=== PATIENT | male | born 1980 | race African-American/Black ===

== ENCOUNTER 2021-04-08 12:09 | Inpatient (IN) | payer OTHER, SELFPAY ==
[2021-04-08] VITALS (8 sets, daily range): BP systolic 101–153; BP diastolic 51–79; PULSE 88–114; RESP 16–18; TEMP 36.8–37.9; O2SAT 98–100; BMI 18.3
--- NOTE | 2021-04-08 12:21 | CT_ITS ---
PROCEDURE INFORMATION: Exam: CT Abdomen And Pelvis Without Contrast Exam date and time: 04/08/2021 12:21 PM Age: 40 years old Clinical indication: Nausea and vomiting; Patient HX: Patient complains of nausea vomitting diarrhea -- no contrast; Additional info: Pain, swelling TECHNIQUE: Imaging protocol: Computed tomography of the abdomen and pelvis without contrast. Radiation optimization: All CT scans at this facility use at least one of these dose optimization techniques: automated exposure control; mA and/or kV adjustment per patient size (includes targeted exams where dose is matched to clinical indication); or iterative reconstruction. COMPARISON: SD XR CHEST PORTABLE 04/08/2021 12:34 PM FINDINGS: Lungs: moderate right pleural effusion with right basilar consolidation versus atelectasis. 16 mm lesion within the lateral segment of the left lobe. Follow-up recommended. Heterogeneous liver. Liver: Nodular cirrhotic appearing liver. Splenomegaly. Small amount of ascites/perihepatic fluid. Gallbladder and bile ducts: Probable gallstones. Thickened edematous gallbladder wall. Nonspecific finding in a patient with portal hypertension. Pancreas: Normal. No ductal dilation. Spleen: See Liver finding. Adrenal glands: Normal. No mass. Kidneys and ureters: No renal calcifications, hydronephrosis, or hydroureter. Stomach and bowel: Fluid-filled large bowel diffusely. Appendix: Appendix normal. Intraperitoneal space: See Liver finding. Vasculature: See Gallbladder and bile ducts finding. Lymph nodes: Unremarkable. No enlarged lymph nodes. Urinary bladder: Unremarkable as visualized. Reproductive: Unremarkable as visualized. Bones/joints: Unremarkable. No acute fracture. Soft tissues: Unremarkable. IMPRESSION: 1. Nodular cirrhotic appearing liver. Splenomegaly. Small amount of ascites/perihepatic fluid. 2. Fluid-filled large bowel diffusely. Fluid-filled small bowel. Favor ileus. Follow-up if indicated. 3. Appendix normal. 4. Moderate right pleural effusion with right basilar consolidation versus atelectasis. 5. Probable gallstones. Thickened edematous gallbladder wall. Nonspecific finding in a patient with portal hypertension. 6. No renal calcifications, hydronephrosis, or hydroureter.
--- NOTE | 2021-04-08 12:21 | XR_ITS ---
PROCEDURE INFORMATION: Exam: XR Chest Exam date and time: 04/08/2021 12:21 PM Age: 40 years old Clinical indication: Cough TECHNIQUE: Imaging protocol: XR of the chest. Views: 1 view. COMPARISON: No relevant prior studies available. FINDINGS: Lungs: Patchy airspace disease in the right mid lung and right lower lobe. Subpulmonic effusion. Pleural spaces: See Lungs finding. Heart/Mediastinum: Unremarkable. No cardiomegaly. Bones/joints: Unremarkable. IMPRESSION: Patchy airspace disease in the right mid lung and right lower lobe. Subpulmonic effusion. Lungs are otherwise well aerated.
[2021-04-08 12:40] LABS: Coronavirus 19, PCR Not Detected (NotDetected); Influenza A, PCR Not Detected (NotDetected); Influenza B, PCR Not Detected (NotDetected)
[2021-04-08 12:47] LABS: Basophils % 0.3 % (0.1-2.0); Lymphocytes # 1.7 K/mm3 (0.7-4.5); Monocytes # 0.6 K/mm3 (0.1-1.0); Platelet Count 97 K/mm3 (142-424)
[2021-04-08 12:50] LABS: Eosinophils % 0.2 % (0.1-12.0); Hematocrit 26.9 % (42.0-52.0); Hemoglobin 8.9 g/dL (14.1-18.0); Lymphocytes % 9.9 % (10-50); Mean Corpuscular HGB Conc 33.1 g/dL (31.8-35.4); Mean Corpuscular Hemoglobin 39.3 pg (27.0-31.2); Mean Corpuscular Volume 118.6 fl (80-94); Mean Platelet Volume 8.4 fl (7.4-10.4); Monocytes % 3.6 % (1.7-9.3); Neutrophils # 14.7 K/mm3 (1.8-7.8); Red Blood Count 2.27 M/mm3 (4.60-6.20); White Blood Count 17.1 K/mm3 (4.8-10.8)
[2021-04-08 12:52] LABS: MANUAL DIFFERENTIAL MANUAL DIFFERENTIAL (MANUAL DIFF)
[2021-04-08 12:55] LABS: Chloride 98 mmol/L (98-107)
[2021-04-08 12:56] LABS: Potassium 3.9 mmoL/L (3.5-5.1); Sodium 129 mmol/L (136-145)
[2021-04-08 12:58] LABS: Ammonia 42 umol/L (9-30); Lactic Acid 1.9 mmol/L (0.7-2.1)
[2021-04-08 12:59] LABS: Alanine Aminotransferase 34 U/L (12-78); Albumin Level 3.1 g/dl (3.5-5.0); Albumin/Globulin Ratio 0.6 (1.1-1.8); Alkaline Phosphatase 165 U/L (38-126); Anion Gap 11.9 mEq/L (5-15); Aspartate Amino Transferase 110 U/L (17-59); Bilirubin,Total 20.8 mg/dl (0.2-1.3); Blood Urea Nitrogen 11 mg/dl (9-20); Calcium 8.2 mg/dl (8.4-10.2); Carbon Dioxide 23 mmol/L (22.0-30.0); Creatinine Clearance Estimated 115 mL/min (50-200); Estimated Glomerular Filt Rate 108 ml/min (>60); GFR (African American) 131 ML/MIN (>60); Globulin 4.9 g/dL (1.3-3.2); Glucose 141 mg/dl (74-100); Lipase 53 U/L (23-300)
[2021-04-08 13:00] LABS: Activated Partial Thrombo Time 40.4 seconds (22.8-30.6); Prothrombin Time 20.6 seconds (10.1-12.5)
[2021-04-08 13:02] LABS: Ethyl Alcohol < 10 mg/dl (0-10)
[2021-04-08 13:03] LABS: INR 1.83 (0.9-1.1)
[2021-04-08 13:06] LABS: Acanthocytes 1+; Anisocytosis 2+; Lymphocytes % 10 % (10-50); Macrocytosis 2+; Monocytes % 3 % (2-9); Neutrophils % 87 % (42-76); Platelet Estimate Moderate Decrease; Poikilocytosis 1+; Total Cells Counted 100
[2021-04-08 13:07] LABS: NT Pro Brain Natriuretic Pep. 743 pg/mL (0-125)
--- NOTE | 2021-04-08 13:11 | HMH.EDGENADL ---
ED Disposition Clinical Impression: Hyperbilirubinemia, Alcohol abuse, Cholecystitis Cirrhosis Qualifiers: Hepatic cirrhosis type: alcoholic cirrhosis Ascites presence: with ascites Qualified Code(s): K70.31 - Alcoholic cirrhosis of liver with ascites Sepsis Qualifiers: Sepsis type: sepsis due to unspecified organism Sepsis acute organ dysfunction status: with acute organ dysfunction Severe sepsis acute organ dysfunction type: unspecified Severe sepsis shock status: without septic shock Qualified Code(s): A41.9 - Sepsis, unspecified organism; R65.20 - Severe sepsis without septic shock Disposition: Admitted As Inpatient Condition on Discharge: Serious Referrals: Provider,Referral, [Primary Care Provider] - - Critical Care Critical Care Time: No Attestation: On 04/08/21, the high probability of a clinically significant, sudden or life threatening deterioration of the following system(s) required my full and direct attention, intervention and personal management. The time I documented below is in addition to time spent performing reported procedures but includes the following listed in this critical care notation. Medical Decision Making - Medical Records Medical records reviewed: Yes: I reviewed the patient's medical records. - Madi Inquiry Pt receiving controlled substance: No Vital Signs: 04/08/21 12:10 04/08/21 13:00 Temperature 100.2 F H Temperature Source Oral Pulse Rate 107 H Pulse Rate [Left Radial] 114 H Respiratory Rate 18 18 Blood Pressure 121/64 Blood Pressure [Right Arm] 153/79 H Blood Pressure Mean 83 Blood Pressure Mean [Right Arm] 103 Blood Pressure Source [Right Arm] Automatic Cuff Blood Pressure Position [Right Arm] Sitting 02 Sat by Pulse Oximetry 99 99 Oxygen Delivery Method Room Air - Lab Data Lab Results 04/08/21 12:30: WBC 17.1 H, RBC 2.27 L, Hgb 8.9 L, Hct 26.9 L, MCV 118.6 H, MCH 39.3 H, MCHC 33.1, RDW 16.0, Plt Count 97 L, MPV 8.4, Neut % (Auto) 86.0 H, Lymph % (Auto) 9.9 L, [place] % (Auto) 3.6, Eos % (Auto) 0.2, Baso % (Auto) 0.3, Neut # (Auto) 14.7 H, Lymph # (Auto) 1.7, [place] # (Auto) 0.6, Eos # (Auto) 0.0, Baso # (Auto) 0.0, Total Counted 100, Neutrophils % (Manual) 87 H, Lymphocytes % (Manual) 10, Monocytes % (Manual) 3, Platelet Estimate Moderate decrease, Poikilocytosis 1+, Anisocytosis 2+, Macrocytosis 2+, Acanthocytes (Spur) 1+ 04/08/21 12:30: Sodium 129 L, Potassium 3.9, Chloride 98, Carbon Dioxide 23, Anion Gap 11.9, BUN 11, Creatinine 0.80, Estimated Creat Clear 115, Estimated GFR 108, Est GFR ( Amer) 131, Glucose 141 H, Calcium 8.2 L, Total Bilirubin 20.8 H*, AST 110 H, ALT 34, Alkaline Phosphatase 165 H, Troponin I 0.01, Total Protein 8.0, Albumin 3.1 L, Globulin 4.9 H, Albumin/Globulin Ratio 0.6 L, Lipase 53 04/08/21 12:30: Plasma/Serum Alcohol < 10 04/08/21 12:30: PT 20.6 H, INR 1.83 H, APTT 40.4 H 04/08/21 12:30: Lactate 1.9 04/08/21 12:30: Ammonia 42 H 04/08/21 12:30: NT-Pro-B Natriuret Pep 743 H 04/08/21 12:30: SARS-CoV-2 (PCR) Not detected, Influenza A Untype (PCR) Not detected, Influenza Type B (PCR) Not detected 04/08/21 13:26: Urine Color Silva, Urine Appearance Clear, Urine pH 5.0, Ur Specific Pierson 1.025, Urine Protein 1+, Urine Glucose (UA) Trace, Urine Ketones Trace, Urine Blood Negative, Urine Nitrate Positive, Urine Bilirubin 3+ A, Urine Urobilinogen 2.0, Ur Leukocyte Esterase Trace, Urine RBC Occasional, Urine WBC Occasional, Ur Squamous Epith Cells Occasional, Ur Transition Epith Cell 5-10, Amorphous Sediment 1+, Urine Bacteria 2+ 04/08/21 13:26: Urine Opiates Screen Negative, Urine Methadone Screen Negative, Ur Barbituates Screen Negative, Ur Phencyclidine Scrn Negative, Ur Amphetamines Screen Negative, U Benzodiazepines Scrn Positive H, Urine Cocaine Screen Negative, U Marijuana (THC) Screen Positive H Result diagrams: 04/08/21 12:30 04/08/21 12:30 Orders (Tests/Meds): ED MEDICATIONS Generic Name Dose Route Start Last Admin
[2021-04-08 13:15] LABS: Troponin I 0.01 ng/ml (0.00-0.034)
[2021-04-08 13:37] LABS: Microscopic, Urine URINE MICROSCOPIC (MICROSCOPIC)
[2021-04-08 13:39] LABS: Appearance,Urine CLEAR (Clear); Blood, Urine Negative (Negative); Glucose,Urine (UA) TRACE (Negative); Ketones,Urine TRACE (Negative); Leukocyte Esterase,Urine TRACE (Negative); Nitrate,Urine POSITIVE (Negative); Protein,Urine 1+ (Negative); Specific Gravity, Urine 1.025 (1.005-1.030)
[2021-04-08 13:42] LABS: Color,Urine Amber (Yellow)
[2021-04-08 13:45] LABS: Bilirubin,Urine 3+ (Negative)
[2021-04-08 13:52] LABS: Barbiturates Screen,Urine Negative ng/ml (<200); Benzodiazepines Screen,Urine Positive ng/ml (<200)
[2021-04-08 13:53] LABS: Amphetamine/Metha Screen,Urine Negative ng/ml (<1000)
[2021-04-08 13:54] LABS: Cannabinoid Screen,Urine Positive ng/ml (<50); Cocaine Screen,Urine Negative ng/ml (<300)
[2021-04-08 13:55] LABS: Methadone Screen,Urine Negative ng/ml (<300)
[2021-04-08 13:56] LABS: Opiate Screen,Urine Negative ng/ml (<300); Phencyclidine Screen,Urine Negative ng/ml (<25)
[2021-04-08 13:57] LABS: RBC,Urine Occasional #/hpf (0-3); WBC,Urine Occasional #/hpf (0-3)
[2021-04-08 13:58] LABS: Amorphous Sediment,Urine 1+ /lpf; Bacteria,Urine 2+ /lpf; Squamous Epithelial Cell,Urine Occasional #/hpf (0-5)
--- NOTE | 2021-04-08 13:58 | PC.NURSE ---
called for transfer, no acceptance. [facility] called for trnsfer, no availability, [facility] called, they are at cap for transfers only ob, stroke or trauma.
--- NOTE | 2021-04-08 14:04 | PC.NURSE ---
[facility] called, pt wait list is about 2 days .
--- NOTE | 2021-04-08 14:29 | PC.NURSE ---
report called to [facility]
[2021-04-08 16:15] LABS: Troponin I 0.01 ng/ml (0.00-0.034)
--- NOTE | 2021-04-08 16:52 | PC.NURSE ---
Spoke with who made changes to patients medications. Ordered a rally pack mixed with LR and a multivitamin. Also requested a 2nd IV be placed prophylactically. Orders followed. Paged pharmacist Anmol as rallypack is not stocked in [facility] in [facility], advised to go to er to get a rally pack, advised on how to properly mix the medication.
[2021-04-08 19:12] LABS: Troponin I 0.02 ng/ml (0.00-0.034)
--- NOTE | 2021-04-08 19:36 | PC.NURSE ---
Patient is resting in bed. Neurologically alert and oriented. Respiratory room air, no issues. GI - no n/v but states that he has chronic diarrhea and is wearing a depend. Patient has eaten 100% of meals. patient voids in toilet or urinal. Ambulates in room independently .Encouraged to call for assistance. Patient has jaundice on his entire body. States that he has been like that for a couple of years. Patient expressed wishes to speak with hospice while admitted. Also requested to make his significant other his poa. States they have paperwork for a livingwill and advanced directive already printed, encouraged patient to have significant other bring that tomorrow. Patient has been resting comfortably. See earlier note about correspondence with .
[2021-04-09 04:00] VITALS: BP 123/68; PULSE 97; RESP 16; TEMP 37.2; O2SAT 100
[2021-04-09 05:42] VITALS: BMI 19.5
[2021-04-09 06:34] LABS: Basophils % 0.3 % (0.1-2.0); Lymphocytes # 1.5 K/mm3 (0.7-4.5); Monocytes # 0.5 K/mm3 (0.1-1.0)
[2021-04-09 06:40] LABS: Eosinophils # 0.2 K/mm3 (0.0-0.4); Eosinophils % 1.7 % (0.1-12.0); Lymphocytes % 11.7 % (10-50); Mean Corpuscular HGB Conc 32.9 g/dL (31.8-35.4); Mean Corpuscular Hemoglobin 39.1 pg (27.0-31.2); Mean Corpuscular Volume 118.7 fl (80-94); Mean Platelet Volume 9.3 fl (7.4-10.4); Monocytes % 3.6 % (1.7-9.3); Neutrophils # 10.9 K/mm3 (1.8-7.8); Neutrophils % 82.9 % (37.0-80.0); Platelet Count 72 K/mm3 (142-424); Red Blood Count 2.06 M/mm3 (4.60-6.20); White Blood Count 13.1 K/mm3 (4.8-10.8)
[2021-04-09 06:42] LABS: Hematocrit 24.4 % (42.0-52.0)
--- NOTE | 2021-04-09 06:46 | PC.NURSE ---
Patient has had an uneventful night this shift; No diarrhea episodes reported this shift. No s/s of acute distress noted, call light within reach, bed at lowest level for safety; will continue to monitor.
[2021-04-09 06:57] LABS: Alanine Aminotransferase 29 U/L (12-78); Albumin Level 2.8 g/dl (3.5-5.0); Albumin/Globulin Ratio 0.6 (1.1-1.8); Alkaline Phosphatase 169 U/L (38-126); Anion Gap 9.4 mEq/L (5-15); Aspartate Amino Transferase 94 U/L (17-59); Bilirubin,Total 16.2 mg/dl (0.2-1.3); Blood Urea Nitrogen 15 mg/dl (9-20); Calcium 7.6 mg/dl (8.4-10.2); Carbon Dioxide 23 mmol/L (22.0-30.0); Chloride 102 mmol/L (98-107); Creatinine Clearance Estimated 122 mL/min (50-200); Estimated Glomerular Filt Rate 108 ml/min (>60); GFR (African American) 131 ML/MIN (>60); Globulin 4.6 g/dL (1.3-3.2); Glucose 121 mg/dl (74-100); Potassium 3.4 mmoL/L (3.5-5.1); Sodium 131 mmol/L (136-145); Total Protein,Serum 7.4 g/dl (6.3-8.2)
--- NOTE | 2021-04-09 07:20 | P.CONPHA_ITS ---
[facility] Pharmacy VTE Monitoring - Patient Demographics Admission date: 04/08/21 Report Date: 04/09/21 Time: 07:20 Allergies/Adverse Reactions: Patient Allergies No Known Allergies Allergy (Verified 04/08/21 12:37) Height: 1.88 m Weight: 68.946 kg Patient Problems: Current Active Problems Cirrhosis (Acute) Sepsis (Acute) Hyperbilirubinemia (Acute) Alcohol abuse (Acute) Cholecystitis (Acute) - VTE Risk Labs: VTE Related Lab Results Hgb 8.0 g/dL (14.1-18.0) L D 04/09/21 05:58 Hct 24.4 % (42.0-52.0) L 04/09/21 05:58 Plt Count 72 K/mm3 (142-424) L D 04/09/21 05:58 PT 20.6 seconds (10.1-12.5) H 04/08/21 12:30 INR 1.83 (0.9-1.1) H 04/08/21 12:30 APTT 40.4 seconds (22.8-30.6) H 04/08/21 12:30 BUN 15 mg/dl (9-20) D 04/09/21 05:58 Creatinine 0.80 mg/dl (0.66-1.25) 04/09/21 05:58 Estimated Creat Clear 122 mL/min (50-200) 04/09/21 05:58 Was VTE Risk Assessment Performed: Yes VTE Score: 2 VTE Risk Level: Very Low Risk - Prophylaxis VTE Prophylaxis Ordered?: Yes Types of VTE Prophylaxis: TEDS Knee High Location of Applied Device: Bilateral Lower Extremeties
--- NOTE | 2021-04-09 07:29 | HMH.PHAINT ---
MEDICATION RECONCILIATION COMPLETED ON PATIENT USING EXTERNAL FILL HISTORY FROM PHARMACY. -GRACE CARREON, YAIMAD
[2021-04-09 08:00] VITALS: BP 124/70; PULSE 105; RESP 20; TEMP 37.3; O2SAT 99
--- NOTE | 2021-04-09 08:53 | HMH.HP ---
*Admission Date: 04/08/21 *Chief complaint: Liver cirrhosis exacerbation, fever, end-stage liver disease *History of present illness: 40-year-old white male, extremely unfortunate history of long-term alcoholism and end-stage cirrhosis. He lives in [facility], and follows with Dr. Solano, tandem mill sticker at the [facility] in [place], and has known about his severe liver disease for several years. He has been offered option of transplant, but understands that he would have to be abstinent from alcohol and nicotine for at least 6 months and is extremely pessimistic about his ability to do this and is also very pessimistic about the chances of liver transplant being procured and then succeeded in his case. He came to the emergency department here because of low-grade fevers, abdominal pain and just generalized malaise. Was found to have elevated leukocytosis, significant elevation of LFTs, bilirubin and coags with a very high meld score and overall significant poor prognostic indicators. Admitted to hospital for IV ceftriaxone given possible spontaneous bacterial peritonitis. This morning he states he feels a little better, less abdominal pain but he and his fianc?e-who is his documented healthcare surrogate-have lots of questions about being admitted to hospice services. [facility] History I have reviewed the patient's past medical history: Yes Medical History: Reports:: Gastroesophageal Reflux Disease(GERD) *Have you ever received a pneumonia vaccine?: No *Have you received a flu vaccine this season?: No Other Medical History: Reports: Blood Transfusion Reaction, Other (Chronic low back pain, on chronic opiates previously) Comment:: End-stage liver to cirrhosis as detailed in HPI. Chronic/long-term alcoholism Other Surgeries: Yes: Appendectomy - *Social History Last grade of school completed: GED Smoking Status: Current every day smoker Tobacco Type: cigarettes # Packs/Day (cigarettes): 1 Alcohol Intake: current Alcohol Intake Frequency:: other Substance Use Type: marijuana Last Used Substance: days (ago) *Occupational Status:: unemployed Housing: house Household Members: significant other *Travel in the last 8 weeks: None Family Hx:: Hypertension, Substance abuse, Alcoholism, Mental illness Review of Systems - *Neurologic Reports weakness Meds Home Medications Medication Instructions Recorded Confirmed Type Famotidine [Acid Controller] 20 mg PO BID 04/08/21 04/09/21 History Lactulose 30 ml PO TID 04/08/21 04/09/21 History Propranolol HCl 10 mg PO BID 04/08/21 04/09/21 History Spironolactone [Spironolactone 25 mg PO DAILY 04/08/21 04/08/21 History 25mg Tablet] Folic Acid 1 mg PO DAILY 04/09/21 04/09/21 History Allergies Allergy/AdvReac Type Severity Reaction Status Date / Time No Known Allergies Allergy Verified 04/08/21 12:37 Exam Vital signs and Labs for Last 24 Hours: Temp Pulse Resp BP Pulse Ox 99 F 97 H 16 123/68 100 04/09/21 04:00 04/09/21 04:00 04/09/21 04:00 04/09/21 04:00 04/09/21 04:00 Laboratory Results - last 24 hr 04/08/21 12:30: WBC 17.1 H, RBC 2.27 L, Hgb 8.9 L, Hct 26.9 L, MCV 118.6 H, MCH 39.3 H, MCHC 33.1, RDW 16.0, Plt Count 97 L, MPV 8.4, Neut % (Auto) 86.0 H, Lymph % (Auto) 9.9 L, [place] % (Auto) 3.6, Eos % (Auto) 0.2, Baso % (Auto) 0.3, Neut # (Auto) 14.7 H, Lymph # (Auto) 1.7, [place] # (Auto) 0.6, Eos # (Auto) 0.0, Baso # (Auto) 0.0, Total Counted 100, Neutrophils % (Manual) 87 H, Lymphocytes % (Manual) 10, Monocytes % (Manual) 3, Platelet Estimate Moderate decrease, Poikilocytosis 1+, Anisocytosis 2+, Macrocytosis 2+, Acanthocytes (Spur) 1+ 04/08/21 12:30: Sodium 129 L, Potassium 3.9, Chloride 98, Carbon Dioxide 23, Anion Gap 11.9, BUN 11, Creatinine 0.80, Estimated Creat Clear 115, Estimated GFR 108, Est GFR ( Amer) 131, Glucose 141 H, Calcium 8.2 L, Total Bilirubin 20.8 H*, AST 110 H, ALT 34, Alkaline Phosphatase 165 H, Troponin I 0.01, Total Protein 8.0,
--- NOTE | 2021-04-09 09:19 | SW/DCPLANNER ---
Addendum entered by Nicol Brito 04/09/21 12:49: HOSPICE [facility] DID COME AND EVALUATE PATIENT AND HE IS APPROPRIATE FOR HOSPICE SERVICES... DISCHARGE TMRW... Original Note: RECEIVED REFERRAL FOR THIS PATIENT FOR HOSPICE CONSULT...PATIENT IS END STAGE LIVER DISEASE R/T TO HIS EXCESSIVE ETOH ABUSE.. HE RESIDES IN [facility] AND REQUESTED HOSPICE TO SEE HIM.. I HAVE SENT THE REFERRAL AND WAITING ON SOMEONE TO COME AND EVALUATE HIM FOR THEIR SERVICES...DR SANCHEZ STATED ONCE HOSPICE IS SET UP HE CAN DISCHARGE HOME IN THE AM....
[2021-04-09 09:45] VITALS: BMI 19.5
--- NOTE | 2021-04-09 10:07 | DIET.NUTRFU ---
Nutritional assessment, IP/consult completed. Pt with severe malnutrition rt Cirrhosis. Diet edu provided for malnutrition rt/with cirrhosis. Pt will have hospice consult dt [facility], diet edu/counseling provided with concern for pt wishes and ethical considerations. Pt encouraged to focus on low sodium/adequate protein diet for quality of life and symptom reduction as well as restoring nutritional stores/muscle mass. Pt and encouraged to reach out with questions/concerns at any time.
--- NOTE | 2021-04-09 15:41 | PC.NURSE ---
PT IS RESTING IN BED. MEDICATED PER MAR FOR PAIN. PT HAS DECIDED HE WANTED TO GO HOME WITH HOSPICE. PT HAS BEEN AMBULATING TO THE BATHROOM. LUNG SOUNDS CLEAR. ABDOMEN SOFT/TENDER WITH HYPERACTIVE BOWEL SOUNDS. SKIN C/D/I (JAUNDICE) EATING AND DRINKING WELL. VSS. WILL CONTINUE TO MONITOR.
[2021-04-09 16:00] VITALS: BP 120/57; PULSE 83; RESP 16; TEMP 36.8; O2SAT 100
[2021-04-09 19:52] VITALS: BP 117/62; PULSE 87; RESP 18; TEMP 36.8; O2SAT 97
[2021-04-09 20:00] VITALS: O2SAT 97
[2021-04-10 04:00] VITALS: BP 104/49; PULSE 78; RESP 16; TEMP 36.6; O2SAT 99
--- NOTE | 2021-04-10 04:49 | PC.NURSE ---
Patient is alert and oriented x4. Lung sounds clear. Skin is C/D/I. Patient has rested well this shift with pain being controlled with medication per MAR. VSS, call light within reach, will continue to monitor.
[2021-04-10 05:04] VITALS: BMI 20.5
--- NOTE | 2021-04-10 06:38 | HMH.DCSUM ---
General - General Admission date:: 04/08/21 Discharge date: 04/10/21 HPI HPI: 40-year-old white male, extremely unfortunate history of long-term alcoholism and end-stage cirrhosis. He lives in [facility], and follows with Dr. Solano, senior nuclear medicine technologist at the [facility] in [place], and has known about his severe liver disease for several years. He has been offered option of transplant, but understands that he would have to be abstinent from alcohol and nicotine for at least 6 months and is extremely pessimistic about his ability to do this and is also very pessimistic about the chances of liver transplant being procured and then succeeded in his case. He came to the emergency department here because of low-grade fevers, abdominal pain and just generalized malaise. Was found to have elevated leukocytosis, significant elevation of LFTs, bilirubin and coags with a very high meld score and overall significant poor prognostic indicators. Admitted to hospital for IV ceftriaxone given possible spontaneous bacterial peritonitis. This morning he states he feels a little better, less abdominal pain but he and his fianc?e-who is his documented healthcare surrogate-have lots of questions about being admitted to hospice services. Hospital Course Hospital Course: 40-year-old male with end-stage cirrhosis. Admitted for SBP. Discussion with patient and his fianc?e about goals of care. Patient understands his only curative treatment for his underlying disease is liver transplant. However he continues to drink and is not a candidate at this time. Given his child-Willoughby class C and meld score of 29 on admission, he is at high risk for mortality with any intra-abdominal procedures and has a greater than 20% mortality rate in the next 3 months. Patient and medical surrogate (fianc?) decided to pursue hospice care. Hospice consulted and accepted patient. We will plan to discharge home today with hospice. Continue oral antibiotics, Levaquin, for total of 10 days of antibiotic therapy for SBP. Resume all home medications for end-stage liver disease/cirrhosis and encephalopathy. Pain medication ordered for 3 days to hold him over until hospice takes over his care. Examined on day of discharge. Stable for discharge under hospice care. Objective Vital signs: Temp Pulse Resp BP Pulse Ox 98 F 78 16 104/49 L 99 04/10/21 04:00 04/10/21 04:00 04/10/21 04:00 04/10/21 04:00 04/10/21 04:00 Narrative: - Constitutional NAD, chronically ill appearing; Deeply jaundiced with scleral icterus and overall body jaundice - *Routine HEENT Exam Head: Present: normocephalic Eye: Present: EOMI, PERRL, conjunctival icterus, scleral injection ENT: Present: mucous membranes dry - *Routine Neck Exam Present: supple. Absent: lymphadenopathy - *Routine Respiratory Exam Present: CTA bilaterally - *Routine Cardiovascular Exam Present: RRR - *Routine Abdominal Exam Present: soft, normoactive bowel sounds, tenderness, other (Diffusely tender with hepatomegaly noted, no splenomegaly, no caput medusa) - *Routine Extremities Exam Absent: cyanosis, clubbing, edema - *Routine Skin Exam Present: warm. Absent: rash - *Routine Neurological Exam Present: alert, oriented X3 Results Labs on day of discharge: Labs from last 24 hours 04/09/21 04/09/21 05:58 05:58 WBC 13.1 H RBC 2.06 L Hgb 8.0 L D Hct 24.4 L MCV 118.7 H MCH 39.1 H MCHC 32.9 RDW 16.0 Plt Count 72 L D MPV 9.3 Neut % (Auto) 82.9 H Lymph % (Auto) 11.7 Antelope % (Auto) 3.6 Eos % (Auto) 1.7 Baso % (Auto) 0.3 Neut # (Auto) 10.9 H Lymph # (Auto) 1.5 Antelope # (Auto) 0.5 Eos # (Auto) 0.2 Baso # (Auto) 0.0 Sodium 131 L Potassium 3.4 L Chloride 102 Carbon Dioxide 23 Anion Gap 9.4 BUN 15 D Creatinine 0.80 Estimated Creat Clear 122 Estimated GFR 108 Est GFR ( Amer) 131 Glucose 1
[2021-04-10 08:00] VITALS: BP 125/58; PULSE 78; RESP 16; TEMP 36.9; O2SAT 100
[2021-04-10 08:39] LABS: Alanine Aminotransferase 28 U/L (12-78); Albumin Level 2.7 g/dl (3.5-5.0); Albumin/Globulin Ratio 0.6 (1.1-1.8); Alkaline Phosphatase 145 U/L (38-126); Anion Gap 10.6 mEq/L (5-15); Aspartate Amino Transferase 93 U/L (17-59); Bilirubin,Total 12.6 mg/dl (0.2-1.3); Blood Urea Nitrogen 10 mg/dl (9-20); Calcium 7.6 mg/dl (8.4-10.2); Carbon Dioxide 21 mmol/L (22.0-30.0); Chloride 104 mmol/L (98-107); Creatinine Clearance Estimated 171 mL/min (50-200); Estimated Glomerular Filt Rate 151 ml/min (>60); GFR (African American) 182 ML/MIN (>60); Globulin 4.2 g/dL (1.3-3.2); Glucose 126 mg/dl (74-100); Potassium 3.6 mmoL/L (3.5-5.1); Sodium 132 mmol/L (136-145); Total Protein,Serum 6.9 g/dl (6.3-8.2)
[2021-04-10 08:48] LABS: Magnesium 1.6 mg/dl (1.6-2.3)
[2021-04-10 08:57] LABS: Basophils % 0.3 % (0.1-2.0); Eosinophils # 0.5 K/mm3 (0.0-0.4); Hematocrit 21.7 % (42.0-52.0); Hemoglobin 7.7 g/dL (14.1-18.0); Lymphocytes # 1.3 K/mm3 (0.7-4.5); Mean Corpuscular HGB Conc 35.5 g/dL (31.8-35.4); Mean Corpuscular Hemoglobin 40.6 pg (27.0-31.2); Mean Corpuscular Volume 114.3 fl (80-94); Mean Platelet Volume 9.2 fl (7.4-10.4); Monocytes # 0.4 K/mm3 (0.1-1.0); Monocytes % 4.9 % (1.7-9.3); Neutrophils # 5.3 K/mm3 (1.8-7.8); Neutrophils % 71.8 % (37.0-80.0); Platelet Count 73 K/mm3 (142-424); Red Cell Distribution Width 15.9 % (11.5-17.5); White Blood Count 7.4 K/mm3 (4.8-10.8)
[2021-04-10 12:57] LABS: Hep A Ab, IgM Negative (Negative); Hepatitis B Core Antibody IgM Negative (Negative); Hepatitis B Surface Antigen Negative (Negative); Hepatitis C Antibody 0.1 s/co ratio (0.0-0.9)
--- NOTE | 2021-04-10 16:48 | CARE MANAGER ---
Contacted by Faby Talley from [facility]. [facility] will not approve Hospice unless they receive a referral from [facility] as [facility] is out of network. Contacted [facility] at [phone]. Started authorization with ref number [id number]. HARSHAL Sanchez
== END 2021-04-10 11:41 | disposition hospice, home (50) | DRG 371 ==
LOC: ER 12:18 → 2ND 14:21
PROVIDERS: Internal Medicine Adolescent Medicine; Admitting Provider Internal Medicine Adolescent Medicine; Emergency Provider Emergency Medicine; PCP Internal Medicine Adolescent Medicine; Visit Provider Internal Medicine Adolescent Medicine
DX: K65.2 Spontaneous bacterial peritonitis (principal); A41.9 Sepsis, unspecified organism; R65.20 Severe sepsis without septic shock; K70.31 Alcoholic cirrhosis of liver with ascites; Z20.822 Contact with and (suspected) exposure to COVID-19; F17.210 Nicotine dependence, cigarettes, uncomplicated; Z81.1 Family history of alcohol abuse and dependence; G89.29 Other chronic pain; Z51.5 Encounter for palliative care; F10.20 Alcohol dependence, uncomplicated; M54.5 Low back pain
CPT/HCPCS: 36415; 71045; 74176; 80053; 80074; 80305; 81001; 82140; 83605; 83690; 83735; 83880; 84484; 85007; 85025; 85610; 85730; 87040; 87086; 96365; 96366; 96375; 99283; C9803; U0003; U0005